=== PATIENT | female | born 1960 | race Caucasian/White ===

== ENCOUNTER 2016-10-10 18:02 | Emergency (ER) | payer OTHER ==
[~2016-10-10] VITALS: Ht 177.8 cm; Wt 100.0 kg
[2016-10-10] MEDS ORDERED: DEMADEX 20MG20 M1 PO (18:32)
[2016-10-10] MEDS ORDERED: CHILDREN'S ASPI81 M1 PO (18:33)
[2016-10-10] MEDS ORDERED: MULTIVITAMIN1 SGL PO (18:33)
[2016-10-10] MEDS ORDERED: BLACK COHOSH200 MG PO (18:33)
[2016-10-10] MEDS ORDERED: LORTAB 10/500 51 TAB PO (18:33)
[2016-10-10] MEDS ORDERED: CIPRO500 M1 PO (18:34)
[2016-10-10] MEDS ORDERED: BACTRIM DS TAB1 EACH PO (22:40)
[2016-10-10] MEDS ORDERED: PERCOCET 325 MG1 TA2 PO (23:04)
[2016-10-10 23:06] VITALS: BP 171/90
== END 2016-10-10 22:55 | disposition home or self-care (01) ==
LOC: ED 18:02
DX: L72.8 Other follicular cysts of the skin and subcutaneous tissue (principal); M79.672 Pain in left foot
CPT/HCPCS: 90715; A4550

== ENCOUNTER 2019-12-22 13:02 | Inpatient (IN) | payer SELFPAY ==
[~2019-12-22] VITALS: Ht 177.8 cm; Wt 105.6 kg
[~2019-12-22 13:02] MED LIST: BACTRIM DS TAB1 EACH PO; BLACK COHOSH200 MG PO; CHILDREN'S ASPI81 M1 PO; CIPRO500 M1 PO; DEMADEX 20MG20 M1 PO; LORTAB 10/500 51 TAB PO; MULTIVITAMIN1 SGL PO; PERCOCET 325 MG1 TA2 PO; ZOFRAN4 M2 PO
[2019-12-22] MEDS ORDERED: FLUCONAZOLE100 MG PO (13:14)
[2019-12-22] MEDS ORDERED: VERAPAMIL180 MG/TAB PO (13:14)
[2019-12-22] MEDS ORDERED: TORSEMIDE20 M1 PO (13:14)
[2019-12-22 13:26] LABS: BASO # 0.1 (0.02-0.10); EOS # 0.2 (0.04-0.40); EOS % 1.3 % (1.0-5.0); HEMATOCRIT 51.8 % (37.0-47.0); HEMOGLOBIN 17.4 g/dL (12.5-16.0); LYMPH# 3.5 (1.50-4.00); MEAN CELL VOLUME 87 fl (78-100); MEAN CORPUSCULAR HEMOGLOBIN 29 pg (27-31); MEAN CORPUSCULAR HGB CONC 34 g/dL (33-37); MEAN PLATELET VOLUME 12.7 fl (7.4-10.4); MONO # 0.9 (0.20-0.80); NEU # 7.3 (1.40-6.50); PLATELET COUNT 232 K/mm3 (130-400); RED BLOOD COUNT 5.93 M/mm3 (4.10-5.30); RED CELL DISTRIBUTION WIDTH 13.9 % (11.5-14.5)
[2019-12-22 13:36] LABS: ALBUMIN 4.2 g/dL (3.5-5.0); POTASSIUM 3.3 mmol/L (3.5-5.1)
[2019-12-22 13:38] LABS: CALCIUM 9.6 mg/dL (8.3-10.5)
[2019-12-22 13:41] LABS: TOTAL BILIRUBIN 0.5 mg/dL (0.2-1.2)
[2019-12-22 13:56] LABS: URINE APPEARANCE CLEAR; URINE BILIRUBIN NEGATIVE (NEGATIVE); URINE BLOOD NEGATIVE (NEGATIVE); URINE COLOR YELLOW; URINE GLUCOSE NEGATIVE (NEGATIVE); URINE KETONE NEGATIVE (NEGATIVE); URINE LEUKOCYTE ESTERASE TRACE (NEGATIVE); URINE MUCUS PRESENT (NOT PRESENT); URINE NITRATE NEGATIVE (NEGATIVE); URINE PROTEIN(semi-quant) NEGATIVE (NEGATIVE); URINE UROBILINOGEN NORMAL (NORMAL)
[2019-12-22 15:28] VITALS: BP 156/70
[2019-12-22 15:30] VITALS: BP 156/70
[2019-12-22] MEDS ORDERED: PRAVASTATIN SOD20 MG PO (15:34)
[2019-12-22] MEDS ORDERED: POTASSIUM CHLO20 ME3 PO (15:34)
[2019-12-22 15:50] LABS: POTASSIUM 3.5 mmol/L (3.5-5.1)
[2019-12-22 15:51] LABS: CALCIUM 8.9 mg/dL (8.3-10.5)
[2019-12-22 18:11] VITALS: BP 128/74
[2019-12-22 21:47] VITALS: BP 123/76
[2019-12-23 01:42] VITALS: BP 132/80
[2019-12-23 05:28] VITALS: BP 135/80
[2019-12-23 06:02] LABS: BASO # 0.1 (0.02-0.10); EOS # 0.2 (0.04-0.40); EOS % 3.2 % (1.0-5.0); HEMATOCRIT 47.3 % (37.0-47.0); HEMOGLOBIN 15.3 g/dL (12.5-16.0); LYMPH# 3.2 (1.50-4.00); MEAN CELL VOLUME 90 fl (78-100); MEAN CORPUSCULAR HEMOGLOBIN 29 pg (27-31); MEAN CORPUSCULAR HGB CONC 32 g/dL (33-37); MONO # 0.5 (0.20-0.80); NEU # 3.1 (1.40-6.50); PLATELET COUNT 193 K/mm3 (130-400); RED BLOOD COUNT 5.23 M/mm3 (4.10-5.30); RED CELL DISTRIBUTION WIDTH 13.9 % (11.5-14.5); WHITE BLOOD COUNT 7.2 K/mm3 (4.8-10.8)
[2019-12-23 06:14] LABS: POTASSIUM 3.6 mmol/L (3.5-5.1)
[2019-12-23 06:15] LABS: CALCIUM 8.9 mg/dL (8.3-10.5)
[2019-12-23 06:31] LABS: MEAN PLATELET VOLUME 12.4 fl (7.4-10.4)
[2019-12-23 09:57] VITALS: BP 126/61
[2019-12-23] MEDS ORDERED: GLUCOPHAGE PO (11:30)
[2019-12-23 14:07] VITALS: BP 117/55
[2019-12-23] MEDS ORDERED: LANTUS SOLOS100 U/ML SQ (14:58)
== END 2019-12-23 15:26 | disposition home or self-care (01) | DRG 638 ==
LOC: ED 13:02 → MED/SURG 14:38
PROVIDERS: Nurse Practitioner; ADMIT Physician Assistant
DX: E11.00 Type 2 diabetes mellitus with hyperosmolarity without nonketotic hyperglycemic-hyperosmolar coma (NKHHC) (principal); E87.1 Hypo-osmolality and hyponatremia; E87.6 Hypokalemia; I10 Essential (primary) hypertension; E78.5 Hyperlipidemia, unspecified; E66.01 Morbid (severe) obesity due to excess calories; F17.210 Nicotine dependence, cigarettes, uncomplicated; Z68.33 Body mass index [BMI] 33.0-33.9, adult; Z79.891 Long term (current) use of opiate analgesic; Z79.82 Long term (current) use of aspirin; Z88.0 Allergy status to penicillin
CPT/HCPCS: J1650; J1815; J3480; J7030

== ENCOUNTER 2020-12-07 19:57 | Emergency (ER) | payer SELFPAY ==
[~2020-12-07] VITALS: Ht 175.3 cm; Wt 102.7 kg
[~2020-12-07 19:57] MED LIST changes: +FLUCONAZOLE100 MG PO; +GLUCOPHAGE PO; +LANTUS SOLOS100 U/ML SQ; +POTASSIUM CHLO20 ME3 PO; +PRAVASTATIN SOD20 MG PO; +TORSEMIDE20 M1 PO; +VERAPAMIL180 MG/TAB PO
[2020-12-07] MEDS ORDERED: TRESIBA100 UNIT/1 SQ (20:48)
[2020-12-07] MEDS ORDERED: INSULIN N (N100 U/ML SQ ×2 (20:50)
[2020-12-07] MEDS ORDERED: PRINIVIL20 M1 PO (20:54)
[2020-12-07] MEDS ORDERED: OMEGA 3 1,0001 EACH PO (20:55)
[2020-12-07] MEDS ORDERED: OZEMPIC1 MG/0.75 SQ (20:57)
[2020-12-07 21:11] LABS: CALCIUM 10.5 mg/dL (8.3-10.5)
[2020-12-07 21:18] LABS: MAGNESIUM 1.89 mg/dL (1.60-2.60)
[2020-12-07 21:21] LABS: POTASSIUM 2.9 mmol/L (3.5-5.1)
[2020-12-07 22:05] VITALS: BP 160/83
== END 2020-12-07 22:05 | disposition left against medical advice (07) ==
LOC: ED 19:57
PROVIDERS: Nurse Practitioner Family
DX: E87.6 Hypokalemia (principal); I10 Essential (primary) hypertension; E11.9 Type 2 diabetes mellitus without complications; F17.210 Nicotine dependence, cigarettes, uncomplicated; Z79.4 Long term (current) use of insulin; Z79.899 Other long term (current) drug therapy